=== PATIENT | male | born 1935 | race Caucasian/White ===

== ENCOUNTER 2020-09-08 13:02 | Inpatient (IN) | payer MEDICARE ==
[2020-09-08] MEDS ORDERED: Ondansetron ODT 4 MG TAB SL PRN (18:54)
[2020-09-08] MEDS ORDERED: Cepastat Lozenges 1 LOZ PO PRN (18:54)
[2020-09-08] MEDS: Terazosin HCl 1 MG CAP PO SCH (20:59)
[2020-09-08] MEDS: Acetaminophen 325 MG TAB PO PRN (20:59)
[2020-09-08] MEDS: ALPRAZolam 0.5 MG TAB PO SCH (20:59)
[2020-09-09] MEDS: Ascorbic Acid 500 mg Chewable Tablet PO SCH (08:16)
[2020-09-09] MEDS: Enoxaparin Sodium 40 MG/0.4 ML SYRINGE SC SCH (08:17)
[2020-09-09] MEDS: Cholecalciferol (Vitamin D3) 400 UNITS TAB PO SCH (08:17)
[2020-09-09] MEDS: metFORMIN 500 MG TAB PO SCH ×2 (08:17→17:06)
[2020-09-09] MEDS: Loratadine 10 MG TAB PO SCH (08:17)
[2020-09-09] MEDS: Zinc Sulfate 220 MG CAP PO SCH (08:17)
[2020-09-09] MEDS ORDERED: FLU VACC QS2020-21(65YR UP)/PF 240 MCG/0.7 ML SYRINGE IM ONE (09:00)
[2020-09-09 09:58] VITALS: BMI 27.3
[2020-09-09] MEDS ORDERED: Dextrose 5% in Water 1,000 ML IV PRN (14:00)
[2020-09-09] MEDS ORDERED: Dextrose 50% Abboject 50 ML SYRINGE IVP PRN (14:00)
[2020-09-09] MEDS: HumaLOG 300 UNITS/3 ML VIAL SC PRN (14:50)
[2020-09-09] MEDS: Acetaminophen 325 MG TAB PO PRN (17:21)
[2020-09-09] MEDS: ALPRAZolam 0.5 MG TAB PO SCH (21:20)
[2020-09-09] MEDS: Terazosin HCl 1 MG CAP PO SCH (21:20)
[2020-09-10 04:29] LABS: ALT (SGPT) 25 U/L (8-55); AST (SGOT) 30 U/L (5-34); Albumin 3.6 g/dL (3.4-4.8); Alkaline Phosphatase 80 U/L (40-110); Anion Gap 18 mmol/L (10-20); BUN (Urea Nitrogen) 20 mg/dL (8.4-25.7); Bilirubin, Total 0.6 mg/dL (0.2-1.2); Calc. Creatinine Clearance 92 mL/min (70-130); Calcium 8.7 mg/dL (7.8-10.44); Carbon Dioxide 23 mmol/L (23-31); Chloride 100 mmol/L (98-107); Globulin 2.7 g/dL (2.4-3.5); Glucose 163 mg/dL (83-110); Protein, Total 6.3 g/dL (5.8-8.1); Sodium 137 mmol/L (136-145)
[2020-09-10 04:48] LABS: Band 4 % (5-11); Hemoglobin 14.2 g/dL (14.0-18.0); Lymphocytes 14 % (21-51); MDiff Complete? YES; Mean Corpuscular Hemoglobin 31.4 pg (27.0-31.0); Mean Corpuscular Volume 92.4 fL (78.0-98.0); Mean Platelet Volume 8.7 fL (7.4-10.4); Monocytes 8 % (0-10); Neutrophil 73 % (42-75); Platelet Count 128 thou/uL (130-400); Platelet Morphology Comment Appears Decreased; RBC Distribution Width 11.5 % (11.5-14.5); RBC Morphology Normal; Reactive Lymphocytes 1 % (0-10); Red Blood Cell (RBC) Count 4.53 mill/uL (4.70-6.10); White Blood Cell (WBC) Count 2.7 thou/uL (4.8-10.8)
[2020-09-10] MEDS: Enoxaparin Sodium 40 MG/0.4 ML SYRINGE SC SCH (09:06)
[2020-09-10] MEDS: Loratadine 10 MG TAB PO SCH (09:07)
[2020-09-10] MEDS: Ascorbic Acid 500 mg Chewable Tablet PO SCH (09:07)
[2020-09-10] MEDS: Zinc Sulfate 220 MG CAP PO SCH (09:07)
[2020-09-10] MEDS: Cholecalciferol (Vitamin D3) 400 UNITS TAB PO SCH (09:08)
[2020-09-10] MEDS: metFORMIN 500 MG TAB PO SCH ×2 (09:08→17:33)
[2020-09-10] MEDS: HumaLOG 300 UNITS/3 ML VIAL SC PRN (12:39)
[2020-09-10] MEDS: ALPRAZolam 0.5 MG TAB PO SCH (20:40)
[2020-09-10] MEDS: Terazosin HCl 1 MG CAP PO SCH (20:40)
[2020-09-11] MEDS: Enoxaparin Sodium 40 MG/0.4 ML SYRINGE SC SCH (08:29)
[2020-09-11] MEDS: metFORMIN 500 MG TAB PO SCH ×2 (08:30→16:50)
[2020-09-11] MEDS: Ascorbic Acid 500 mg Chewable Tablet PO SCH (08:30)
[2020-09-11] MEDS: Zinc Sulfate 220 MG CAP PO SCH (08:31)
[2020-09-11] MEDS: Cholecalciferol (Vitamin D3) 400 UNITS TAB PO SCH (08:31)
[2020-09-11] MEDS: Loratadine 10 MG TAB PO SCH (08:31)
[2020-09-11] MEDS: Terazosin HCl 1 MG CAP PO SCH (21:01)
[2020-09-11] MEDS: ALPRAZolam 0.5 MG TAB PO SCH (21:01)
[2020-09-12] MEDS: Enoxaparin Sodium 40 MG/0.4 ML SYRINGE SC SCH (07:52)
[2020-09-12] MEDS: metFORMIN 500 MG TAB PO SCH ×2 (07:52→16:37)
[2020-09-12] MEDS: Zinc Sulfate 220 MG CAP PO SCH (07:52)
[2020-09-12] MEDS: Cholecalciferol (Vitamin D3) 400 UNITS TAB PO SCH (07:53)
[2020-09-12] MEDS: Loratadine 10 MG TAB PO SCH (07:53)
[2020-09-12] MEDS: Ascorbic Acid 500 mg Chewable Tablet PO SCH (07:53)
[2020-09-12] MEDS: Acetaminophen 325 MG TAB PO PRN (17:06)
[2020-09-12] MEDS: Terazosin HCl 1 MG CAP PO SCH (20:06)
[2020-09-12] MEDS: ALPRAZolam 0.5 MG TAB PO SCH (20:06)
[2020-09-13] MEDS: Loratadine 10 MG TAB PO SCH (08:45)
[2020-09-13] MEDS: Enoxaparin Sodium 40 MG/0.4 ML SYRINGE SC SCH (08:45)
[2020-09-13] MEDS: Zinc Sulfate 220 MG CAP PO SCH (08:45)
[2020-09-13] MEDS: metFORMIN 500 MG TAB PO SCH ×2 (08:45→17:54)
[2020-09-13] MEDS: Ascorbic Acid 500 mg Chewable Tablet PO SCH (08:46)
[2020-09-13] MEDS: Cholecalciferol (Vitamin D3) 400 UNITS TAB PO SCH (08:46)
[2020-09-13] MEDS: Terazosin HCl 1 MG CAP PO SCH (20:36)
[2020-09-13] MEDS: ALPRAZolam 0.5 MG TAB PO SCH (20:36)
[2020-09-14] MEDS: Enoxaparin Sodium 40 MG/0.4 ML SYRINGE SC SCH (08:14)
[2020-09-14] MEDS: Loratadine 10 MG TAB PO SCH (08:15)
[2020-09-14] MEDS: Cholecalciferol (Vitamin D3) 400 UNITS TAB PO SCH (08:15)
[2020-09-14] MEDS: Zinc Sulfate 220 MG CAP PO SCH (08:15)
[2020-09-14] MEDS: Ascorbic Acid 500 mg Chewable Tablet PO SCH (08:15)
[2020-09-14] MEDS: metFORMIN 500 MG TAB PO SCH ×2 (08:15→17:17)
[2020-09-14] MEDS: HumaLOG 300 UNITS/3 ML VIAL SC PRN (12:52)
[2020-09-14] MEDS: Terazosin HCl 1 MG CAP PO SCH (20:42)
[2020-09-14] MEDS: ALPRAZolam 0.5 MG TAB PO SCH (20:42)
[2020-09-15] MEDS: metFORMIN 500 MG TAB PO SCH ×2 (08:00→17:46)
[2020-09-15] MEDS: Cholecalciferol (Vitamin D3) 400 UNITS TAB PO SCH (08:00)
[2020-09-15] MEDS: Ascorbic Acid 500 mg Chewable Tablet PO SCH (08:00)
[2020-09-15] MEDS: Loratadine 10 MG TAB PO SCH (08:00)
[2020-09-15] MEDS: Zinc Sulfate 220 MG CAP PO SCH (08:00)
[2020-09-15] MEDS: Enoxaparin Sodium 40 MG/0.4 ML SYRINGE SC SCH (08:00)
[2020-09-15] MEDS: HumaLOG 300 UNITS/3 ML VIAL SC PRN (18:23)
[2020-09-15] MEDS: ALPRAZolam 0.5 MG TAB PO SCH (20:52)
[2020-09-15] MEDS: Terazosin HCl 1 MG CAP PO SCH (20:52)
[2020-09-16 07:11] LABS: Calc. Creatinine Clearance 98 mL/min (70-130)
[2020-09-16 07:12] LABS: Hemoglobin 13.4 g/dL (14.0-18.0); Platelet Count 240 thou/uL (130-400)
[2020-09-16] MEDS: HumaLOG 300 UNITS/3 ML VIAL SC PRN (08:19)
[2020-09-16] MEDS: Enoxaparin Sodium 40 MG/0.4 ML SYRINGE SC SCH (08:27)
[2020-09-16] MEDS: Ascorbic Acid 500 mg Chewable Tablet PO SCH (08:27)
[2020-09-16] MEDS: metFORMIN 500 MG TAB PO SCH ×2 (08:28→16:39)
[2020-09-16] MEDS: Loratadine 10 MG TAB PO SCH (08:28)
[2020-09-16] MEDS: Cholecalciferol (Vitamin D3) 400 UNITS TAB PO SCH (08:29)
[2020-09-16] MEDS: Zinc Sulfate 220 MG CAP PO SCH (08:29)
[2020-09-16] MEDS: Terazosin HCl 1 MG CAP PO SCH (19:52)
[2020-09-16] MEDS: ALPRAZolam 0.5 MG TAB PO SCH (19:53)
[2020-09-17] MEDS: Ascorbic Acid 500 mg Chewable Tablet PO SCH (08:25)
[2020-09-17] MEDS: Enoxaparin Sodium 40 MG/0.4 ML SYRINGE SC SCH (08:25)
[2020-09-17] MEDS: Loratadine 10 MG TAB PO SCH (08:25)
[2020-09-17] MEDS: metFORMIN 500 MG TAB PO SCH ×2 (08:25→16:00)
[2020-09-17] MEDS: Cholecalciferol (Vitamin D3) 400 UNITS TAB PO SCH (08:25)
[2020-09-17] MEDS: Zinc Sulfate 220 MG CAP PO SCH (08:26)
[2020-09-17] MEDS: HumaLOG 300 UNITS/3 ML VIAL SC PRN (13:02)
[2020-09-17] MEDS: ALPRAZolam 0.5 MG TAB PO SCH (21:03)
[2020-09-17] MEDS: Terazosin HCl 1 MG CAP PO SCH (21:03)
[2020-09-18] MEDS: HumaLOG 300 UNITS/3 ML VIAL SC PRN (09:19)
[2020-09-18] MEDS: Enoxaparin Sodium 40 MG/0.4 ML SYRINGE SC SCH (09:20)
[2020-09-18] MEDS: Ascorbic Acid 500 mg Chewable Tablet PO SCH (09:20)
[2020-09-18] MEDS: Zinc Sulfate 220 MG CAP PO SCH (09:21)
[2020-09-18] MEDS: metFORMIN 500 MG TAB PO SCH ×2 (09:21→17:51)
[2020-09-18] MEDS: Loratadine 10 MG TAB PO SCH (09:22)
[2020-09-18] MEDS: Cholecalciferol (Vitamin D3) 400 UNITS TAB PO SCH (09:22)
[2020-09-18] MEDS: ALPRAZolam 0.5 MG TAB PO SCH (19:56)
[2020-09-18] MEDS: Terazosin HCl 1 MG CAP PO SCH (19:56)
[2020-09-19 05:55] LABS: Hemoglobin 13.1 g/dL (14.0-18.0); Platelet Count 246 thou/uL (130-400)
[2020-09-19 06:02] LABS: Calc. Creatinine Clearance 96 mL/min (70-130)
[2020-09-19] MEDS: Cholecalciferol (Vitamin D3) 400 UNITS TAB PO SCH (08:12)
[2020-09-19] MEDS: Zinc Sulfate 220 MG CAP PO SCH (08:12)
[2020-09-19] MEDS: metFORMIN 500 MG TAB PO SCH ×2 (08:13→17:21)
[2020-09-19] MEDS: Enoxaparin Sodium 40 MG/0.4 ML SYRINGE SC SCH (08:13)
[2020-09-19] MEDS: Loratadine 10 MG TAB PO SCH (08:13)
[2020-09-19] MEDS: Ascorbic Acid 500 mg Chewable Tablet PO SCH (08:13)
[2020-09-19] MEDS: HumaLOG 300 UNITS/3 ML VIAL SC PRN (12:28)
[2020-09-19] MEDS: ALPRAZolam 0.5 MG TAB PO SCH (20:20)
[2020-09-19] MEDS: Terazosin HCl 1 MG CAP PO SCH (20:21)
[2020-09-20] MEDS ORDERED: Enoxaparin Sodium 40 MG/0.4 ML SYRINGE ONE (08:00)
[2020-09-20] MEDS: Enoxaparin Sodium 40 MG/0.4 ML SYRINGE SC SCH (08:24)
[2020-09-20] MEDS: Cholecalciferol (Vitamin D3) 400 UNITS TAB PO SCH (08:25)
[2020-09-20] MEDS: Loratadine 10 MG TAB PO SCH (08:25)
[2020-09-20] MEDS: Zinc Sulfate 220 MG CAP PO SCH (08:25)
[2020-09-20] MEDS: Ascorbic Acid 500 mg Chewable Tablet PO SCH (08:25)
[2020-09-20] MEDS: metFORMIN 500 MG TAB PO SCH ×2 (08:25→16:53)
[2020-09-20] MEDS: Terazosin HCl 1 MG CAP PO SCH (21:22)
[2020-09-20] MEDS: ALPRAZolam 0.5 MG TAB PO SCH (21:22)
[2020-09-21] MEDS: Zinc Sulfate 220 MG CAP PO SCH (08:20)
[2020-09-21] MEDS: Loratadine 10 MG TAB PO SCH (08:20)
[2020-09-21] MEDS: metFORMIN 500 MG TAB PO SCH ×2 (08:20→17:14)
[2020-09-21] MEDS: Cholecalciferol (Vitamin D3) 400 UNITS TAB PO SCH (08:20)
[2020-09-21] MEDS: Ascorbic Acid 500 mg Chewable Tablet PO SCH (08:21)
[2020-09-21] MEDS: Enoxaparin Sodium 40 MG/0.4 ML SYRINGE SC SCH (09:29)
[2020-09-21] MEDS: HumaLOG 300 UNITS/3 ML VIAL SC PRN ×2 (09:29→17:14)
[2020-09-21] MEDS: ALPRAZolam 0.5 MG TAB PO SCH (20:43)
[2020-09-21] MEDS: Terazosin HCl 1 MG CAP PO SCH (20:43)
[2020-09-22 05:00] LABS: Calc. Creatinine Clearance 102 mL/min (70-130)
[2020-09-22 05:10] LABS: Hemoglobin 13.9 g/dL (14.0-18.0); Platelet Count 240 thou/uL (130-400)
[2020-09-22 06:05] VITALS: BP 139/93; TEMP 97.7
[2020-09-22] MEDS: Zinc Sulfate 220 MG CAP PO SCH (08:03)
[2020-09-22] MEDS: Enoxaparin Sodium 40 MG/0.4 ML SYRINGE SC SCH (08:03)
[2020-09-22] MEDS: Loratadine 10 MG TAB PO SCH (08:03)
[2020-09-22] MEDS: Ascorbic Acid 500 mg Chewable Tablet PO SCH (08:04)
[2020-09-22] MEDS: metFORMIN 500 MG TAB PO SCH (08:04)
[2020-09-22] MEDS: Cholecalciferol (Vitamin D3) 400 UNITS TAB PO SCH (08:04)
[2020-09-22] MEDS: HumaLOG 300 UNITS/3 ML VIAL SC PRN (08:05)
--- NOTE | 2020-09-23 08:47 | DIS ---
DATE OF ADMISSION: 09/08/2020 DATE OF DISCHARGE: 09/22/2020 ADMISSION DIAGNOSES: Generalized weakness, COVID-19, pancytopenia, new onset type 2 diabetes mellitus. SECONDARY DIAGNOSES: History of Guillain-[place] syndrome, urinary incontinence, and memory impairment. PROCEDURES: None. HOSPITAL COURSE: This is an 85-year-old male, who presented to our group home facility status post acute admission at [facility] in [employer], where he presented with progressive weakness, recent diagnosis of COVID positive diagnosis, and mild pancytopenia. 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 While in [employer], the patient had no significant symptoms in regard to his COVID positive diagnosis and was able to work with therapy prior to transitioning to our facility to continue group home and therapy. While here, he also had no complications in regard to COVID diagnosis on 09/03/2020, and after sufficient time, had isolation precautions removed accordingly. He did have slow benefit in regard to therapy and has been set up to transition to inpatient therapy at [facility]. His lab work did improve in regard to mild pancytopenia, which effectively resolved and was most likely related to the COVID diagnosis. As for his new onset diabetes, this was effectively treated with metformin and mild Humalog sliding scale with good control of his glucose. The patient is otherwise doing well at this point and suitable to discharge to inpatient rehab. DISPOSITION: The patient will discharge to [facility] for further therapy. DISCHARGE MEDICATIONS: Include: 1. Tylenol 650 mg q.6 hours p.r.n. 2. Xanax 0.5 mg at bedtime. 3. Ascorbic acid 1000 mg daily. 4. Vitamin D 400 units daily. 5. Claritin 10 mg daily. 6. Metformin 500 mg b.i.d. 7. Zofran 4 mg sublingual q.6 hours p.r.n. 8. Pantoprazole 40 mg daily. 9. Sertraline 100 mg daily. 10. Terazosin 1 mg at bedtime. 11. Zinc sulfate 220 mg daily. TIME SPENT: Total time spent in preparation of discharge of this patient greater than 30 minutes. Job ID: [id number]
== END 2020-09-22 15:30 | DRG 947 ==
LOC: BURMED 16:17
PROVIDERS: ADMIT Family Medicine; ATTEND Family Medicine
PROC: 8E0ZXY6 Isolation (ICD-10-PCS; principal; 2020-09-08)
DX: R53.1 Weakness (principal); U07.1 COVID-19; G61.0 Guillain-Barre syndrome; D61.818 Other pancytopenia; E11.9 Type 2 diabetes mellitus without complications; R32 Unspecified urinary incontinence; R41.3 Other amnesia; F03.90 Unspecified dementia, unspecified severity, without behavioral disturbance, psychotic disturbance, mood disturbance, and anxiety; N40.1 Benign prostatic hyperplasia with lower urinary tract symptoms; K21.9 Gastro-esophageal reflux disease without esophagitis; F32.9 Major depressive disorder, single episode, unspecified
CPT/HCPCS: 36415; 36416; 80053; 82565; 85014; 85018; 85025; 85049; J1650; J1815; Q0162